=== PATIENT | female | born 1975 | race Two or more races ===

== ENCOUNTER 2019-11-11 20:41 | Emergency (ER) | payer BC ==
[~2019-11-11] VITALS: Ht 162.6 cm; Wt 77.1 kg
[2019-11-11 21:05] LABS: Basophils # (auto) 0.1 uL; Basophils % (auto) 1.4 % (0.0-2.0); Eosinophils # (auto) 0.1 uL; Eosinophils % (auto) 1.9 % (0.0-7.0); Hematocrit 37.2 % (36.0-46.0); Hemoglobin 12.4 g/dL (12.2-16.2); Lymphocytes # (auto) 2.2 uL; Lymphocytes % (auto) 32.9 % (10.0-50.0); Mean Corpuscular Hemoglobin 28.9 pg (28.0-32.0); Mean Corpuscular Hgb Conc. 33.3 g/dL (32.0-36.0); Mean Corpuscular Volume 86.8 fL (80.0-100.0); Monocytes # (auto) 0.5 uL; Monocytes % (auto) 7.8 % (0.0-12.0); Neutrophils # (auto) 3.7 uL; Platelet Count (auto) 336 10^3/uL (140-450); Red Blood Cells 4.28 10^6/uL (4.0-5.20); Red Cell Distribution Width 14.6 % (11.8-14.3); White Blood Cell 6.6 10^3/uL (4.4-10.8)
[2019-11-11 21:21] LABS: Alanine Aminotransferase 20 U/L (13-56); Albumin 3.8 g/dL (3.4-5.0); Anion Gap 8 (5-15); Aspartate Aminotransferase 13 U/L (15-37); BUN/Creatinine Ratio 16.9; Blood Urea Nitrogen 10 mg/dL (7-18); Calcium 8.9 mg/dL (8.5-10.1); Carbon Dioxide 25 mmol/L (21-32); Chloride 105 mmol/L (98-107); GFR African American 142 mL/min; GFR Non-African American 118 mL/min; Glucose 101 mg/dL (74-106); Potassium 3.8 mmol/L (3.5-5.1); Sodium 138 mmol/L (136-145)
[2019-11-11 21:26] LABS: Alkaline Phosphatase 55 U/L (45-117); Bilirubin, Total 0.2 mg/dL (0.2-1.0); Total Protein 7.7 g/dL (6.4-8.2)
[2019-11-12 00:22] VITALS: BP 141/56
[2019-11-12 00:47] LABS: Cholesterol 192 mg/dL (< 200)
[2019-11-12 00:50] LABS: HDL Cholesterol 59 mg/dL (40-59); LDL Cholesterol 115 mg/dL (< 100); Triglycerides 140 mg/dL (< 150)
== END 2019-11-12 01:00 | disposition home or self-care (01) ==
LOC: ER 20:45
DX: R42 Dizziness and giddiness (principal)
CPT/HCPCS: 36415; 80053; 80061; 82306; 82607; 84443; 84484; 85025; 85379; 93005

== ENCOUNTER 2020-09-29 12:28 | Emergency (ER) | payer BC, MEDICAID ==
[~2020-09-29] VITALS: Ht 162.6 cm; Wt 79.4 kg
[2020-09-29 14:20] VITALS: BP 136/71
[2020-09-29] MEDS ORDERED: traMADol HCL 50 MG TAB PO ONE (15:15)
== END 2020-09-29 15:26 | disposition home or self-care (01) ==
LOC: ER 12:28
DX: S43.401A Unspecified sprain of right shoulder joint, initial encounter (principal); X58.XXXA Exposure to other specified factors, initial encounter; Y93.89 Activity, other specified; Y92.89 Other specified places as the place of occurrence of the external cause; Y99.8 Other external cause status
CPT/HCPCS: 73030

== ENCOUNTER 2021-12-15 17:37 | Emergency (ER) | payer BC, MEDICAID ==
[~2021-12-15] VITALS: Ht 165.1 cm; Wt 79.8 kg
[2021-12-15 17:53] VITALS: BP 123/78
[2021-12-15 19:23] LABS: Urine Bacteria FEW /hpf (None Seen); Urine Blood Negative /uL (Negative); Urine Hyaline Cast FEW /lpf (0 - 2); Urine Mucus FEW (None Seen); Urine Specific Gravity 1.029 (1.001-1.035); Urine WBC 5 /hpf (0 - 5)
[2021-12-15] MEDS ORDERED: ONDANSETRON ODT 4 MG TAB PO ONE (20:15)
[2021-12-15] MEDS ORDERED: ALUM & MAG HYDROX-SIMETH LIQ(MAALOX) 30 ML PO ONE (20:15)
[2021-12-15] MEDS ORDERED: FAMOTIDINE 20 MG TAB PO ONE (20:15)
[2021-12-15] MEDS ORDERED: CEPH-322 PO (21:24)
== END 2021-12-15 21:57 | disposition left against medical advice (07) ==
LOC: ER 17:37
DX: N39.0 Urinary tract infection, site not specified (principal); K52.9 Noninfective gastroenteritis and colitis, unspecified; Z53.29 Procedure and treatment not carried out because of patient's decision for other reasons
CPT/HCPCS: 81001; 81025; 99284; Q0162

== ENCOUNTER 2024-12-25 18:42 | Emergency (ER) | payer BC, MEDICAID, OTHER ==
[~2024-12-25] VITALS: Ht 162.6 cm; Wt 77.2 kg
[~2024-12-25 18:42] MED LIST: CEPH250C PO
[2024-12-25 19:16] VITALS: BP 139/76; PULSE 78; RESP 14; TEMP 98.4; O2SAT 98
[2024-12-25] MEDS: FLUORESCEIN SOD OPTH TEST STRIP LEFTEYE ONE (20:25)
[2024-12-25] MEDS: TETRACAINE HCL 0.5% OPTH(EYE) SOLN 4ML LEFTEYE ONE (20:25)
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
[2024-12-25] MEDS ORDERED: ERY05OO OP (22:00)
--- NOTE | 2024-12-25 22:23 | DVH ---
EXAM: CT ORBITS WO CONTRAST CLINICAL HISTORY: LEFT EYE PAIN TECHNIQUE: Multiple contiguous axial images were obtained of the facial bones without intravenous con trast. Sagittal and coronal reformations were obtained. This exam was performed according to our depa rtmental dose optimization program. Up-to-date CT equipment and radiation dose reduction techniques a re utilized as appropriate. Comparison: None FINDINGS: Moderate right maxillary sinus fluid level with frothy secretions. Mild mucosal thickening of the eth moid air cells. The mastoid air cells are well-aerated. The globes and orbits are normal in appearan ce without CT evidence of orbital hemorrhage. The extraocular muscles are intact. No acute fracture. The temporomandibular joints are maintained. IMPRESSION: 1. No evidence of acute facial fracture or orbital hemorrhage. 2. Right maxillary sinusitis.
[2024-12-25] MEDS ORDERED: AMOX875T4 PO (22:39)
== END 2024-12-25 22:50 | disposition home or self-care (01) ==
LOC: ER 18:42
DX: S05.02XA Injury of conjunctiva and corneal abrasion without foreign body, left eye, initial encounter (principal); J01.90 Acute sinusitis, unspecified; X58.XXXA Exposure to other specified factors, initial encounter; Y93.89 Activity, other specified; Y92.89 Other specified places as the place of occurrence of the external cause; Y99.8 Other external cause status
CPT/HCPCS: 70480